=== PATIENT | female | born 2000 | race Caucasian/White ===

== ENCOUNTER 2019-10-16 15:55 | Emergency (ER) | payer MEDICAID, SELFPAY ==
[2019-10-16 16:12] VITALS: BP 130/72; PULSE 104; RESP 21; TEMP 36.6; O2SAT 99; BMI 19.8
--- NOTE | 2019-10-16 16:21 | HMH.EDUTC ---
[facility] [place]ression: Sinusitis Qualifiers: Sinusitis location: unspecified location Chronicity: acute Recurrence: non-recurrent Qualified Code(s): J01.90 - Acute sinusitis, unspecified Disposition: Home, Self-Care Condition on Discharge: Good Instructions: Sinusitis, DI for Sinusitis Additional Instructions: Drink plenty of fluids. Take tylenol or ibuprofen for pain or fever. Take the medications as directed. Follow up with your regular doctor. GO TO THE ER FOR ANY WORSENING SYMPTOMS Prescriptions: Azithromycin [Z-Casey 250mg Tab*] 250 mg PO UD DOSE PK #6 tab Transmission Status: Received by [id number] Referrals: Carla Barnes APRN [Primary Care Provider] - Time of Disposition: 16:31 Medical Decision Making - Medical Records Medical records reviewed: No: I reviewed the patient's medical records. - Jb Inquiry Pt receiving controlled substance: No Vital Signs: 10/16/19 16:12 10/16/19 16:50 Temperature 97.9 F 97.9 F Temperature Source Oral Pulse Rate 104 H Pulse Rate [Right Brachial] 104 H Respiratory Rate 21 21 Blood Pressure 130/72 Blood Pressure [Right Arm] 130/72 Blood Pressure Mean [Right Arm] 91 Blood Pressure Source [Right Arm] Automatic Cuff Blood Pressure Position [Right Arm] Sitting 02 Sat by Pulse Oximetry 99 Oxygen Delivery Method Room Air Orders (Tests/Meds): ED MEDICATIONS Discontinued Medications Generic Name Dose Route Start Last Admin Trade Name Freq PRN Reason Stop Dose Admin Dexamethasone Sodium Phosphate 8 mg 10/16/19 16:31 10/16/19 16:44 Decadron 4mg/Ml 1ml Vial IM 10/16/19 16:32 8 mg ONCE ONE Administration [facility] [place] - General Stated complaint: scratchy throat, runny nose, mucous drainage Time Seen by Provider: 10/16/19 16:21 Mode of Arrival: Ambulatory Source of Information: Patient Limitations: No Limitations Description of Symptoms (Recalled from Triage Doc. by RN): PATIENT C/O SCRATCHY/IRRITATED THROAT, SPITTING UP MUCOUS AND NASAL CONGESTION X 2 DAYS. DENIES FEVER, COUGH, AND ANY KNOWN SICK CONTACTS HEENT Symptoms (Recalled from RN notes): Yes Resp Symptoms (Recalled from RN notes): No Skin Symptoms (Recalled from RN notes): No MS Symptoms (Recalled from RN notes): No Functional Status (Recalled from RN notes): wnl - History of Present Illness Provider Complaint: She c/o sinus pressure, scratchy throat and head ache. She states that she has bad environmental allergies and that causes her to get sinus infections frequently. - Related Data Home Medications Medication Instructions Recorded Confirmed Loratadine/Pseudoephedrine 1 each PO DAILY 10/16/19 10/16/19 [Claritin-D 24 Hour Tablet] Previous Rx's Medication Instructions Recorded Azithromycin [Z-Casey 250mg Tab*] 250 mg PO UD DOSE PK #6 tab 10/16/19 Allergies Allergy/AdvReac Type Severity Reaction Status Date / Time No Known Allergies Allergy Verified 07/24/19 11:04 - Worker's Comp Is this a Worker's Comp case?: No [facility] History - Hepatitis A Screen Drug use history?: No High risk sexual behaviors?: No History of sexually transmitted infection?: No Currently employed?: No Childcare worker?: No Do you have indoor plumbing?: Yes Do you have electricity?: Yes Attestation statement:: This patient has been screened for Hepatitis A risk factors. I have reviewed the patient's past medical history: Yes Medical History: Reports:: Anxiety, Depression, Seizures Laterality Cases: Bilateral: Tonsillectomy Other Surgeries: Yes: , Other - Social History Smoking Status: Never smoker Alcohol Intake: never Substance Use Type: denies use Occupational Status: other Housing: house Household Members: family - Psychiatric History Pschychiatric History:: Reports:: Anxiety, Depression Family Hx:: Hypertension, Cancer, Diabetes Comment: Mother - Bulimia, Depression, Anxiety ROS Obtained: Yes All systems r
[2019-10-16 16:50] VITALS: BP 130/72; PULSE 104; RESP 21; TEMP 36.6; O2SAT 99
== END 2019-10-16 16:55 | disposition home or self-care (01) ==
PROVIDERS: Emergency Provider Nurse Practitioner Family; PCP Nurse Practitioner
DX: J01.90 Acute sinusitis, unspecified (principal); F41.8 Other specified anxiety disorders; Z90.09 Acquired absence of other part of head and neck
CPT/HCPCS: 96372; 99201

== ENCOUNTER 2020-02-04 08:59 | Emergency (ER) | payer MEDICAID, SELFPAY ==
[2020-02-04 09:00] VITALS: BP 149/87; PULSE 86; RESP 21; TEMP 36.7; O2SAT 99; BMI 20.5
[2020-02-04 09:26] LABS: UTC Strep Screen (Rapid) Negative (Negative)
[2020-02-04 09:28] LABS: UTC Influenza A Antigen Negative (Negative); UTC Influenza B Antigen Negative (Negative)
--- NOTE | 2020-02-04 09:59 | HMH.EDUTC ---
[facility] [place] Disposition Clinical Impression: Sinusitis Qualifiers: Sinusitis location: unspecified location Chronicity: acute Recurrence: non-recurrent Qualified Code(s): J01.90 - Acute sinusitis, unspecified Disposition: Home, Self-Care Condition on Discharge: Good Instructions: Sinusitis, DI for Sinusitis Additional Instructions: Drink plenty of fluids. Take tylenol or ibuprofen for pain or fever. Take the medications as directed. Follow up with your regular doctor. GO TO THE ER FOR ANY WORSENING SYMPTOMS Prescriptions: Brompheniramine/Pseudoephed/Dm [Bromfed Dm Cough Syrup] 5 ml PO Q6HP PRN #240 syrup PRN Reason: Cough Transmission Status: Received by [id number] methylPREDNISolone [Medrol] 4 mg PO DIRECTED 6 Days #21 tab.ds.pk [facility]: [facility] Azithromycin [Z-Casey 250mg Tab*] 250 mg PO UD DOSE PK #6 tab Transmission [facility]: [facility] Referrals: Carla Barnes APRN [Primary Care Provider] - Forms: Work/School Release Time of Disposition: 10:09 Medical Decision Making - Medical Records Medical records reviewed: No: I reviewed the patient's medical records. - Jb Inquiry Pt receiving controlled substance: No Vital Signs: 02/04/20 09:00 02/04/20 10:22 Temperature 98.1 F 98.1 F Temperature Source Oral Oral Pulse Rate 86 Pulse Rate [Right] 86 Respiratory Rate 21 21 Blood Pressure 149/87 H Blood Pressure [Right Arm] 149/87 H Blood Pressure Mean [Right Arm] 107 Blood Pressure Source Automatic Cuff Blood Pressure Position Sitting 02 Sat by Pulse Oximetry 99 Oxygen Delivery Method Room Air - Lab Data Lab results reviewed: Yes: I reviewed the patient's lab results. Lab Results 02/04/20 09:19: Influenza Type A Ag Negative, Influenza Type B Ag Negative 02/04/20 09:19: Strep Scn Rapid Clinic Negative Orders (Tests/Meds): ORDERS Category Date Time Status Strep Screen Confirmation Stat Micro 02/04/20 09:19 Received [facility] [place] HPI - General Stated complaint: mucus, sore throat, headache Time Seen by Provider: 02/04/20 09:00 Mode of Arrival: Ambulatory Limitations: No Limitations Description of Symptoms (Recalled from Triage Doc. by RN): C/O sore throat, sinus pressure and drainage, GUERRERO. Exposure to covid on the . HEENT Symptoms (Recalled from RN notes): Yes Resp Symptoms (Recalled from RN notes): Yes Skin Symptoms (Recalled from RN notes): No MS Symptoms (Recalled from RN notes): No Functional Status (Recalled from RN notes): na - History of Present Illness Provider Complaint: She c/o sinus pressure and headache for the past 2 days. She was exposed to COVID-19 on 01/29. - Related Data Home Medications Medication Instructions Recorded Confirmed Loratadine/Pseudoephedrine 1 each PO DAILY 10/16/19 10/16/19 [Claritin-D 24 Hour Tablet] Previous Rx's Medication Instructions Recorded Azithromycin [Z-Casey 250mg Tab*] 250 mg PO UD DOSE PK #6 tab 10/16/19 Azithromycin [Z-Casey 250mg Tab*] 250 mg PO UD DOSE PK #6 tab 02/04/20 Brompheniramine/Pseudoephed/Dm 5 ml PO Q6HP PRN #240 syrup 02/04/20 [Bromfed Dm Cough Syrup] methylPREDNISolone [Medrol] 4 mg PO DIRECTED 6 Days #21 02/04/20 tab.ds.pk Allergies Allergy/AdvReac Type Severity Reaction Status Date / Time No Known Allergies Allergy Verified 07/24/19 11:04 - Worker's Comp Is this a Worker's Comp case?: No [facility] History - Hepatitis A Screen Drug use history?: No High risk sexual behaviors?: No History of sexually transmitted infection?: No Currently employed?: No Childcare worker?: No Do you have indoor plumbing?: Yes Do you have electricity?: Yes Attestation statement:: This patient has been screened for Hepatitis A risk factors. I have reviewed the patient's past medical history: Yes Medical History: Reports:: Anxiety, Depression, Seizures Laterality Cases: Bilateral: Tonsillectomy Other Surgeries: Yes:
[2020-02-04 10:22] VITALS: BP 149/87; PULSE 86; RESP 21; TEMP 36.7; O2SAT 99
== END 2020-02-04 10:23 | disposition home or self-care (01) ==
PROVIDERS: Emergency Provider Nurse Practitioner Family; PCP Nurse Practitioner
DX: J01.90 Acute sinusitis, unspecified (principal); Z20.828 Contact with and (suspected) exposure to other viral communicable diseases; F41.8 Other specified anxiety disorders
CPT/HCPCS: 87804; 87880; 99202; U0003

== ENCOUNTER 2020-03-27 12:06 | Emergency (ER) | payer MEDICAID, SELFPAY ==
[2020-03-27 12:15] VITALS: BP 112/87; PULSE 85; RESP 20; TEMP 37.1; O2SAT 100; BMI 20.9
--- NOTE | 2020-03-27 12:26 | HMH.EDUTC ---
[facility] [place] Clinical Impression: Exposure to COVID-19 virus Disposition: Home, Self-Care Condition on Discharge: Good Instructions: Preventing the Spread of Coronavirus Discharge Instructions Additional Instructions: isolate until test results are known neg any symptoms follow up with pcp Referrals: Carla Barnes APRN [Primary Care Provider] - Time of Disposition: 12:31 Medical Decision Making - Jb Inquiry Pt receiving controlled substance: No Vital Signs: 03/27/20 12:15 Temperature 98.7 F Temperature Source Oral Pulse Rate [Right Brachial] 85 Respiratory Rate 20 Blood Pressure [Right Arm] 112/87 Blood Pressure Mean [Right Arm] 95 Blood Pressure Source [Right Arm] Automatic Cuff Blood Pressure Position [Right Arm] Sitting 02 Sat by Pulse Oximetry 100 Oxygen Delivery Method Room Air Orders (Tests/Meds): ORDERS Category Date Time Status Covid-19 Nasal PCR Sendout [facility] Stat Lab 03/27/20 12:08 Ordered [facility] [place] HPI - General Chief complaint: [facility] Stated complaint: covid exposure Time Seen by Provider: 03/27/20 12:26 Mode of Arrival: Ambulatory Source of Information: Patient Limitations: No Limitations Description of Symptoms (Recalled from Triage Doc. by RN): PATIENT REQUESTING COVID TEST D/T EXPOSURE; DENIES SYMPTOMS HEENT Symptoms (Recalled from RN notes): No Resp Symptoms (Recalled from RN notes): No Skin Symptoms (Recalled from RN notes): No MS Symptoms (Recalled from RN notes): No Functional Status (Recalled from RN notes): WNL - History of Present Illness Provider Complaint: 19 yr old female presents for covid testing.pt states no symptoms - Related Data Allergies Allergy/AdvReac Type Severity Reaction Status Date / Time No Known Allergies Allergy Verified 07/24/19 11:04 - Worker's Comp Is this a Worker's Comp case?: No [facility] History - Hepatitis A Screen Drug use history?: No High risk sexual behaviors?: No History of sexually transmitted infection?: No Currently employed?: No Childcare worker?: No Do you have indoor plumbing?: Yes Do you have electricity?: Yes Attestation statement:: This patient has been screened for Hepatitis A risk factors. I have reviewed the patient's past medical history: Yes Medical History: Reports:: Anxiety, Depression, Seizures Laterality Cases: Bilateral: Tonsillectomy Other Surgeries: Yes: , Other - Social History Smoking Status: Never smoker Alcohol Intake: never Substance Use Type: denies use Occupational Status: other Housing: house Household Members: family - Psychiatric History Pschychiatric History:: Reports:: Anxiety, Depression Family Hx:: Hypertension, Cancer, Diabetes Comment: Mother - Bulimia, Depression, Anxiety ROS Obtained: Yes Systems reviewed as appropriate & no additional complaints - Constitutional Constitutional: Reports system reviewed and no additional complaints, except as docu, Denies fever(s) - Eyes Eyes: Reports system reviewed and no additional complaints, except as docu, Denies eye pain - ENT Ears, Nose, Mouth, and Throat: Reports system reviewed and no additional complaints, except as docu, Denies sore throat - Cardiovascular Cardiovascular: Reports system reviewed and no additional complaints, except as docu, Denies chest pain - Respiratory Respiratory: Yes system reviewed and no additional complaints, except as docu, No dyspnea on exertion - Gastrointestinal Gastrointestingal: Reports: system reviewed and no additional complaints, except as docu. Denies: nausea, vomiting - Genitourinary Female Genitourinary: Reports system reviewed and no additional complaints, except as docu, Denies urinary hesitancy - Musculoskeletal Musculoskeletal: Reports system reviewed and no additional complaints, except as docu, Denies joint pain - Integumentary/Breasts Skin/Breast: Reports system reviewed and no additional complaints, except as docu, Denies rash - N
[2020-03-27 12:31] VITALS: BP 112/87; PULSE 85; RESP 20; TEMP 37.1; O2SAT 100
[2020-03-28 09:19] LABS: Covid-19 Nasal PCR Sendout UK Not Detected
== END 2020-03-27 12:35 | disposition home or self-care (01) ==
PROVIDERS: Emergency Provider Nurse Practitioner Family; PCP Nurse Practitioner
DX: Z20.828 Contact with and (suspected) exposure to other viral communicable diseases (principal); F41.8 Other specified anxiety disorders
CPT/HCPCS: 99201; U0003

== ENCOUNTER → 2020-03-29 12:22 | Outpatient (CLI) | payer MEDICAID, SELFPAY ==
[2020-03-30 13:19] LABS: Covid-19 Nasal PCR Sendout Lex Positive
== END ==
PROVIDERS: PCP Nurse Practitioner; Visit Provider Nurse Practitioner Family
DX: Z20.828 Contact with and (suspected) exposure to other viral communicable diseases (principal); U07.1 COVID-19
CPT/HCPCS: U0004

== ENCOUNTER 2020-04-22 11:21 | Emergency (ER) | payer MEDICAID, SELFPAY ==
[2020-04-22 12:53] VITALS: BP 00/00; PULSE 0; RESP 0; TEMP -17.7; TEMP 0
== END 2020-04-22 12:54 | disposition left against medical advice (07) ==
LOC: UTC 11:23
PROVIDERS: Emergency Provider Nurse Practitioner; PCP Nurse Practitioner
DX: Z53.21 Procedure and treatment not carried out due to patient leaving prior to being seen by health care provider (principal)

== ENCOUNTER 2020-06-20 11:16 | Emergency (ER) | payer MEDICAID, SELFPAY ==
[2020-06-20 11:39] VITALS: BP 118/75; PULSE 89; RESP 14; TEMP 36.2; O2SAT 99; BMI 20.5
--- NOTE | 2020-06-20 12:09 | HMH.EDUTC ---
[facility] [place] Disposition Clinical Impression: Viral syndrome, Close exposure to COVID-19 virus Disposition: Home, Self-Care Condition on Discharge: Good Instructions: DI for COVID-19 (Suspected or Confirmed ), Preventing the Spread of Coronavirus Discharge Instructions Additional Instructions: Drink plenty of fluids. Take tylenol for pain or fever. Return if you begin to have difficulty breathing. Follow up with your regular doctor. GO TO THE ER FOR ANY WORSENING SYMPTOMS Prescriptions: Azithromycin [Z-Casey 250mg Tab*] 250 mg PO UD DOSE PK #6 tab Transmission Status: Received by [id number] Referrals: Carla Barnes APRN [Primary Care Provider] - Time of Disposition: 12:32 Medical Decision Making - Medical Records Medical records reviewed: No: I reviewed the patient's medical records. - Jb Inquiry Pt receiving controlled substance: No Vital Signs: 06/20/20 11:39 06/20/20 13:14 Temperature 97.1 F L 98.6 F Temperature Source Tympanic Pulse Rate 93 H Pulse Rate [Right] 89 Respiratory Rate 14 18 Blood Pressure 115/77 Blood Pressure [Right Arm] 118/75 Blood Pressure Mean [Right Arm] 89 Blood Pressure Source [Right Arm] Automatic Cuff Blood Pressure Position [Right Arm] Sitting 02 Sat by Pulse Oximetry 99 Oxygen Delivery Method Room Air [facility] [place] HPI - General Stated complaint: covid test Time Seen by Provider: 06/20/20 12:09 Mode of Arrival: Ambulatory Source of Information: Patient Limitations: No Limitations Description of Symptoms (Recalled from Triage Doc. by RN): pt was directly exposed to covid. her fiance tested positive yesterday. pt is having a cough, ear ache, GUERRERO and congestion. HEENT Symptoms (Recalled from RN notes): Yes (GUERRERO and ear ache) Resp Symptoms (Recalled from RN notes): Yes (cough) Skin Symptoms (Recalled from RN notes): No MS Symptoms (Recalled from RN notes): No Functional Status (Recalled from RN notes): na - History of Present Illness Provider Complaint: She states that she has been exposed to covid-19 at her home. She has bene having sinus congestion, sore throat and a dry cough since yesterday. - Related Data Previous Rx's Medication Instructions Recorded Azithromycin [Z-Casey 250mg Tab*] 250 mg PO UD DOSE PK #6 tab 06/20/20 Allergies Allergy/AdvReac Type Severity Reaction Status Date / Time No Known Allergies Allergy Verified 06/20/20 11:44 - Worker's Comp Is this a Worker's Comp case?: No [facility] History - Hepatitis A Screen Drug use history?: No High risk sexual behaviors?: No History of sexually transmitted infection?: No Currently employed?: No Childcare worker?: No Do you have indoor plumbing?: Yes Do you have electricity?: Yes Attestation statement:: This patient has been screened for Hepatitis A risk factors. I have reviewed the patient's past medical history: Yes Medical History: Reports:: Anxiety, Depression, Seizures Laterality Cases: Bilateral: Tonsillectomy Other Surgeries: Yes: , Other - Social History Smoking Status: Unknown if ever smoked Alcohol Intake: never Substance Use Type: denies use Occupational Status: employed Housing: house Household Members: family - Psychiatric History Pschychiatric History:: Reports:: Anxiety, Depression Family Hx:: Hypertension, Cancer, Diabetes Comment: Mother - Bulimia, Depression, Anxiety ROS Obtained: Yes All systems reviewed & no additional complaints - Constitutional Constitutional: Reports system reviewed and no additional complaints, except as docu - Eyes Eyes: Reports system reviewed and no additional complaints, except as docu - ENT Ears, Nose, Mouth, and Throat: Reports system reviewed and no additional complaints, except as docu - Cardiovascular Cardiovascular: Reports system reviewed and no additional complaints, except as docu - Respiratory Respiratory: Reports system reviewed and no additional complaints, except as docu - Gastroin
[2020-06-20 13:14] VITALS: BP 115/77; PULSE 93; RESP 18; TEMP 37
== END 2020-06-20 12:33 | disposition home or self-care (01) ==
PROVIDERS: Emergency Provider Nurse Practitioner Family; PCP Nurse Practitioner
DX: B34.9 Viral infection, unspecified (principal); Z20.822 Contact with and (suspected) exposure to COVID-19
CPT/HCPCS: 99202; G0463; U0003

== ENCOUNTER 2020-08-28 11:14 | Emergency (ER) | payer MEDICAID, SELFPAY ==
[2020-08-28 11:15] VITALS: BP 120/88; PULSE 87; RESP 16; TEMP 36.6; O2SAT 99; BMI 20.9
--- NOTE | 2020-08-28 11:57 | HMH.EDUTC ---
[facility] [place]: Exposure to COVID-19 virus, Viral syndrome Disposition: Home, Self-Care Condition on Discharge: Good Instructions: Preventing the Spread of Coronavirus Discharge Instructions Additional Instructions: Drink plenty of fluids. Take tylenol for pain or fever. Return if you begin to have difficulty breathing. Follow up with your regular doctor. GO TO THE ER FOR ANY WORSENING SYMPTOMS Referrals: Carla Barnes APRN [Primary Care Provider] - Forms: Work/School Release Time of Disposition: 11:57 Medical Decision Making - Medical Records Medical records reviewed: No: I reviewed the patient's medical records. - Jb Inquiry Pt receiving controlled substance: No Vital Signs: 08/28/20 11:15 08/28/20 11:59 Temperature 97.8 F 97.8 F Temperature Source Tympanic Oral Pulse Rate 87 Pulse Rate [Right] 87 Respiratory Rate 16 16 Blood Pressure 120/88 Blood Pressure [Right Arm] 120/88 Blood Pressure Mean [Right Arm] 98 02 Sat by Pulse Oximetry 99 Oxygen Delivery Method Room Air Orders (Tests/Meds): ORDERS Category Date Time Status Covid-19 Nasal PCR ([facility]) Routine Lab 08/28/20 11:20 [place] [facility] [place] - General Stated complaint: Covid Test Time Seen by Provider: 08/28/20 11:15 Mode of Arrival: Ambulatory Limitations: No Limitations Description of Symptoms (Recalled from Triage Doc. by RN): pt requested Covid test. pt c/o handy, stuffy nose HEENT Symptoms (Recalled from RN notes): No Resp Symptoms (Recalled from RN notes): Yes Skin Symptoms (Recalled from RN notes): No MS Symptoms (Recalled from RN notes): No Functional Status (Recalled from RN notes): wnl - History of Present Illness Provider Complaint: She states that she was exposed to covid-19 3 days ago. She has been having chest congestion, low grade fever, chilling and body aches since yesterday. - Related Data Previous Rx's Medication Instructions Recorded Azithromycin [Z-Casey 250mg Tab*] 250 mg PO UD DOSE PK #6 tab 06/20/20 Allergies Allergy/AdvReac Type Severity Reaction Status Date / Time No Known Allergies Allergy Verified 06/20/20 11:44 - Worker's Comp Is this a Worker's Comp case?: No [facility] History - Hepatitis A Screen Drug use history?: No High risk sexual behaviors?: No History of sexually transmitted infection?: No Currently employed?: No Childcare worker?: No Do you have indoor plumbing?: Yes Do you have electricity?: Yes Attestation statement:: This patient has been screened for Hepatitis A risk factors. I have reviewed the patient's past medical history: Yes Medical History: Reports:: Anxiety, Depression, Seizures Laterality Cases: Bilateral: Tonsillectomy Other Surgeries: Yes: , Other - Social History Smoking Status: Never smoker Alcohol Intake: never Substance Use Type: denies use Occupational Status: employed Housing: house Household Members: family - Psychiatric History Pschychiatric History:: Reports:: Anxiety, Depression Family Hx:: Hypertension, Cancer, Diabetes Comment: Mother - Bulimia, Depression, Anxiety ROS Obtained: Yes All systems reviewed & no additional complaints - Constitutional Constitutional: Reports as per HPI - Eyes Eyes: Reports system reviewed and no additional complaints, except as docu - ENT Ears, Nose, Mouth, and Throat: Reports system reviewed and no additional complaints, except as docu - Cardiovascular Cardiovascular: Reports system reviewed and no additional complaints, except as docu - Respiratory Respiratory: Reports system reviewed and no additional complaints, except as docu, Denies dyspnea, Denies stridor, Denies wheezing - Gastrointestinal Gastrointestingal: Reports: nausea. Denies: abdominal pain, diarrhea, vomiting Physical Exam - General General appearance: alert, in no apparent distress - Head Head exam: atraumatic, normocephalic, normal inspection - Eye Eye exam:
[2020-08-28 11:59] VITALS: BP 120/88; PULSE 87; RESP 16; TEMP 36.6; O2SAT 99
== END 2020-08-28 12:01 | disposition home or self-care (01) ==
PROVIDERS: Emergency Provider Nurse Practitioner Family; PCP Nurse Practitioner
DX: Z20.822 Contact with and (suspected) exposure to COVID-19 (principal); B34.9 Viral infection, unspecified; F41.8 Other specified anxiety disorders
CPT/HCPCS: 99202; G0463; U0003

== ENCOUNTER → 2021-02-10 19:52 | Outpatient (CLI) | payer MEDICAID, SELFPAY ==
[2021-02-10 19:53] LABS: Adenovirus,PCR Not Detected (NotDetected); Bordetella Pertussis Not Detected (NotDetected); Chlamydophila Pneumoniae, PCR Not Detected (NotDetected); Coronavirus 19, PCR Not Detected (NotDetected); Coronavirus 229E Not Detected (NotDetected); Coronavirus NL63 Not Detected (NotDetected); Coronavirus OC43 Not Detected (NotDetected); Coronovirus HKU1,PCR Not Detected (NotDetected); Human Metapneumovirus Not Detected (NotDetected); Influenza A, PCR Not Detected (NotDetected); Influenza AH1, 2009 Not Detected (NotDetected); Influenza AH1, PCR Not Detected (NotDetected); Influenza AH3,PCR Not Detected (NotDetected); Influenza B, PCR Not Detected (NotDetected); Mycoplasma Pneumoniae, PCR Not Detected (NotDetected); Parainfluenza 1, PCR Not Detected (NotDetected); Parainfluenza 2, PCR Not Detected (NotDetected); Parainfluenza 3, PCR Not Detected (NotDetected); Parainfluenza 4, PCR Not Detected (NotDetected); Respiratory Syncytial Virus Not Detected (NotDetected); Rhinovirus/Enterovirus Not Detected (NotDetected)
== END ==
PROVIDERS: Visit Provider Nurse Practitioner Family
DX: Z20.822 Contact with and (suspected) exposure to COVID-19 (principal); R50.9 Fever, unspecified; J02.9 Acute pharyngitis, unspecified
CPT/HCPCS: 87581; 87632; 87798; C9803; U0003; U0005

== ENCOUNTER → 2021-06-03 09:12 | Outpatient (CLI) | payer MEDICAID, SELFPAY ==
[2021-06-04 15:20] LABS: Covid-19 Nasal PCR Sendout Lex POSITIVE
== END ==
PROVIDERS: Visit Provider Nurse Practitioner
DX: U07.1 COVID-19 (principal)
CPT/HCPCS: C9803; U0004; U0005

== ENCOUNTER 2021-09-06 12:51 | Emergency (ER) | payer MEDICAID, SELFPAY ==
--- NOTE | 2021-09-06 13:48 | HMH.EDUTC ---
[facility] [place]ression: Sinusitis Qualifiers: Sinusitis location: unspecified location Chronicity: acute Recurrence: non-recurrent Qualified Code(s): J01.90 - Acute sinusitis, unspecified Disposition: Home, Self-Care Condition on Discharge: Good Instructions: Sinusitis, DI for Sinusitis Additional Instructions: Drink plenty of fluids. Take tylenol or ibuprofen for pain or fever. Take the medications as directed. Follow up with your regular doctor. GO TO THE ER FOR ANY WORSENING SYMPTOMS Prescriptions: Fluticasone Propionate [Flonase 50mcg nasal spray 16gm] 1 spr NS DAILY 30 Days #120 each [facility]: [facility] methylPREDNISolone [Medrol] 4 mg PO DIRECTED 6 Days #21 packet Transmission [facility]: [facility] Azithromycin [Z-Casey 250mg Tab*] 250 mg PO UD DOSE PK #6 tab Transmission Status: Received by [facility] Cetirizine HCl [Zyrtec] 10 mg PO DAILY 30 Days #30 cap Transmission [facility]: [facility] Referrals: Carla Barnes APRN [Primary Care Provider] - Forms: Work/School Release Time of Disposition: 14:31 Medical Decision Making - Medical Records Medical records reviewed: No: I reviewed the patient's medical records. - Jb Inquiry Pt receiving controlled substance: No Vital Signs: 09/06/21 14:05 09/06/21 14:37 Temperature 98.6 F 98.6 F Temperature Source Oral Pulse Rate 84 Pulse Rate [Left] 84 Respiratory Rate 18 18 Blood Pressure 128/81 Blood Pressure [Right Arm] 128/71 Blood Pressure Mean [Right Arm] 90 02 Sat by Pulse Oximetry 100 - Lab Data Lab results reviewed: Yes: I reviewed the patient's lab results. [facility] [place] - General Stated complaint: possible sinus inf Time Seen by Provider: 09/06/21 13:48 - History of Present Illness Provider Complaint: She states that for the past 5 days she has had a worsening sinus congestion, drainage and a cough. - Related Data Previous Rx's Medication Instructions Recorded albuterol sulfate 90 mcg/actuation 2 puff INHALATION Q6H PRN 30 Days 02/10/21 aerosol inhaler #6.7 g Azithromycin [Z-Casey 250mg Tab*] 250 mg PO UD DOSE PK #6 tab 05/03/22 Cetirizine HCl [Zyrtec] 10 mg PO DAILY 30 Days #30 cap 09/06/21 Fluticasone Propionate [Flonase 1 spr NS DAILY 30 Days #120 each 09/06/21 50mcg nasal spray 16gm] methylPREDNISolone [Medrol] 4 mg PO DIRECTED 6 Days #21 09/06/21 packet Allergies Allergy/AdvReac Type Severity Reaction Status Date / Time No Known Allergies Allergy Verified 09/06/21 14:08 [facility] History - Hepatitis A Screen Attestation statement:: This patient has been screened for Hepatitis A risk factors. I have reviewed the patient's past medical history: Yes Medical History: Reports:: Anxiety, Depression, Seizures Laterality Cases: Bilateral: Tonsillectomy Other Surgeries: Yes: , Other Comment: adenoids - Social History Smoking Status: Never smoker Alcohol Intake: never Substance Use Type: denies use Occupational Status: employed Housing: house Household Members: family - Psychiatric History Pschychiatric History:: Reports:: Anxiety, Depression Family Hx:: Hypertension, Cancer, Diabetes Comment: Mother - Bulimia, Depression, Anxiety ROS Obtained: Yes All systems reviewed & no additional complaints - Constitutional Constitutional: Reports as per HPI - Eyes Eyes: Denies eye discharge - ENT Ears, Nose, Mouth, and Throat: Reports as per HPI - Cardiovascular Cardiovascular: Denies chest pain - Respiratory Respiratory: Denies chest congestion, Reports cough Physical Exam - General General appearance: alert, in no apparent distress - Head Head exam: atraumatic, normocephalic, normal inspection - Eye Eye exam: Present: normal appearance, PERRL, EOMI - ENT ENT exam: Present: normal exam, normal oropharynx, mucous membranes moist, TM's normal bilaterally,
[2021-09-06 14:05] VITALS: BP 128/71; PULSE 84; RESP 18; TEMP 37; O2SAT 100; BMI 21.4
[2021-09-06 14:37] VITALS: BP 128/81; PULSE 84; RESP 18; TEMP 37
== END 2021-09-06 14:38 | disposition home or self-care (01) ==
PROVIDERS: Emergency Provider Nurse Practitioner Family; PCP Nurse Practitioner
DX: J01.90 Acute sinusitis, unspecified (principal); G40.909 Epilepsy, unspecified, not intractable, without status epilepticus; F32.A Depression, unspecified; F41.9 Anxiety disorder, unspecified; Z79.51 Long term (current) use of inhaled steroids; Z79.52 Long term (current) use of systemic steroids; Z79.899 Other long term (current) drug therapy; Z82.49 Family history of ischemic heart disease and other diseases of the circulatory system; Z80.9 Family history of malignant neoplasm, unspecified; Z83.3 Family history of diabetes mellitus; Z84.89 Family history of other specified conditions
CPT/HCPCS: 99213; G0463

== ENCOUNTER 2021-10-22 14:12 | Emergency (ER) | payer MEDICAID, SELFPAY ==
[2021-10-22 14:29] VITALS: BP 123/55; PULSE 87; RESP 17; TEMP 37; O2SAT 98; BMI 22.1
--- NOTE | 2021-10-22 14:41 | HMH.EDUTC ---
[facility] [place] Clinical Impression: Contact dermatitis Qualifiers: Contact dermatitis type: allergic Contact dermatitis trigger: unspecified trigger Qualified Code(s): L23.9 - Allergic contact dermatitis, unspecified cause Disposition: Home, Self-Care Condition on Discharge: Good Instructions: DI for Contact Dermatitis Additional Instructions: Try to identify and avoid contact with the offending substance. Don't start the oral steroids until tomorrow. Don't put the topical steroids (triamcinolone) on your face or your groin area. Follow up with your regular doctor, if this continues you may need to be referred to a truck railroad and bus motor mechanic. GO TO THE ER FOR ANY WORSENING SYMPTOMS OR CONCERNS Prescriptions: methylPREDNISolone [Medrol] 4 mg PO DIRECTED 6 Days #21 packet Transmission Status: Received by [id number] Triamcinolone Acetonide 1 applicatio TP TIDP PRN 7 Days #1 gm PRN Reason: Itching Transmission Status: Received by [id number] Referrals: Carla Barnes APRN [Primary Care Provider] - Time of Disposition: 14:50 Medical Decision Making - Medical Records Medical records reviewed: No: I reviewed the patient's medical records. - Jb Inquiry Pt receiving controlled substance: No Vital Signs: 10/22/21 14:29 10/22/21 14:51 Temperature 98.6 F 98.6 F Temperature Source Oral Pulse Rate 87 Pulse Rate [Left Radial] 87 Respiratory Rate 17 17 Blood Pressure 123/55 L Blood Pressure [Right Arm] 123/55 L Blood Pressure Mean [Right Arm] 77 02 Sat by Pulse Oximetry 98 Orders (Tests/Meds): ED MEDICATIONS Discontinued Medications Generic Name Dose Route Start Last Admin Trade Name Freq PRN Reason Stop Dose Admin Methylprednisolone Sodium Succinate 125 mg 10/22/21 14:27 10/22/21 14:35 Methylprednisolone Sod Succ 125mg Vial IM 10/22/21 14:28 125 mg ONCE ONE Administration [facility] [place] - General Stated complaint: rash on back Time Seen by Provider: 10/22/21 14:35 Description of Symptoms (Recalled from Triage Doc. by RN): patient comes in for rash on back HEENT Symptoms (Recalled from RN notes): No Resp Symptoms (Recalled from RN notes): No Skin Symptoms (Recalled from RN notes): Yes MS Symptoms (Recalled from RN notes): No Functional Status (Recalled from RN notes): wnl - History of Present Illness Provider Complaint: She reports that she has a itchy rash on her back that has been there for the past 2 to 3 weeks. She denies any know exposure to poison vinayak or other irritants. She denies any rash elsewhere on her. She denies any fever or chills or feeling bad or other complaints. - Related Data Previous Rx's Medication Instructions Recorded albuterol sulfate 90 mcg/actuation 2 puff INHALATION Q6H PRN 30 Days 02/10/21 aerosol inhaler #6.7 g Azithromycin [Z-Casey 250mg Tab*] 250 mg PO UD DOSE PK #6 tab 09/06/21 Cetirizine HCl [Zyrtec] 10 mg PO DAILY 30 Days #30 cap 09/06/21 Fluticasone Propionate [Flonase 1 spr NS DAILY 30 Days #120 each 09/06/21 50mcg nasal spray 16gm] methylPREDNISolone [Medrol] 4 mg PO DIRECTED 6 Days #21 09/06/21 packet Triamcinolone Acetonide 1 applicatio TP TIDP PRN 7 Days #1 10/22/21 gm methylPREDNISolone [Medrol] 4 mg PO DIRECTED 6 Days #21 10/22/21 packet Allergies Allergy/AdvReac Type Severity Reaction Status Date / Time No Known Allergies Allergy Verified 10/22/21 14:32 - Worker's Comp Is this a Worker's Comp case?: No [facility] History - Hepatitis A Screen Attestation statement:: This patient has been screened for Hepatitis A risk factors. I have reviewed the patient's past medical history: Yes Medical History: Reports:: Anxiety, Depression, Seizures Laterality Cases: Bilateral: Tonsillectomy Other Surgeries: Yes: , Other Comment: adenoids - Social History Smoking Status: Never smoker Alcohol Intake: never Substance Use Type: denies use Occupational Status: employed [employer]
[2021-10-22 14:51] VITALS: BP 123/55; PULSE 87; RESP 17; TEMP 37
== END 2021-10-22 14:52 | disposition home or self-care (01) ==
PROVIDERS: Emergency Provider Nurse Practitioner Family; PCP Nurse Practitioner
DX: L23.9 Allergic contact dermatitis, unspecified cause (principal); G40.909 Epilepsy, unspecified, not intractable, without status epilepticus; F32.A Depression, unspecified; F41.9 Anxiety disorder, unspecified; Z79.51 Long term (current) use of inhaled steroids; Z79.52 Long term (current) use of systemic steroids; Z79.899 Other long term (current) drug therapy; Z82.49 Family history of ischemic heart disease and other diseases of the circulatory system; Z83.3 Family history of diabetes mellitus; Z80.9 Family history of malignant neoplasm, unspecified; Z81.8 Family history of other mental and behavioral disorders; Z86.59 Personal history of other mental and behavioral disorders
CPT/HCPCS: 96372; 99213; G0463

== ENCOUNTER 2021-12-30 15:57 | Emergency (ER) | payer MEDICAID, SELFPAY ==
--- NOTE | 2021-12-30 17:52 | EXP.UTC ---
Discharge Plan Disposition Patient Disposition: Home, Self-Care Condition: Good Prescriptions Prescriptions: No Action albuterol sulfate 90 mcg/actuation HFA aerosol inhaler 2 puff INHALATION Q6H PRN (Reason: wheezing and SOB) 30 Days Qty: 6.7 0RF Rx Instructions: administer with spacer azithromycin 250 MG tablet 250 mg PO UD DOSE PK Qty: 6 0RF Rx Instructions: Take two (2) tablets today, then one (1) tablet days #2 thru #5 methylprednisolone 4 MG tablets,dose pack 4 mg PO DIRECTED 6 Days Qty: 21 0RF fluticasone propionate 120 SPR/BOT bottle 1 spr NS DAILY 30 Days Qty: 120 0RF cetirizine 10 MG capsule 10 mg PO DAILY 30 Days Qty: 30 5RF triamcinolone acetonide 15 GM cream 1 applicatio TP TIDP PRN (Reason: Itching) 7 Days Qty: 1 0RF Rx Instructions: 0.025% methylprednisolone 4 MG tablets,dose pack 4 mg PO DIRECTED 6 Days Qty: 21 0RF Referrals Referrals: Carla Barnes APRN [Primary Care Provider] - Enter time for follow up Activity Restrictions/Add. Instructions Additional Instructions/Restrictions: Drink plenty of fluids. Take tylenol for pain or fever. Return if you begin to have difficulty breathing. Follow up with your regular doctor. GO TO THE ER FOR ANY WORSENING SYMPTOMS Quarantine until you know the results of your covid-19 test. Notify your school or workplace of your results and follow their instructions regarding return to work/school. Clinical Impressions Clinical Impression: Viral syndrome Instructions Patient Instructions: DI for Viral Syndrome, Coronavirus Disease 2019, Preventing the Spread of Coronavirus Discharge Instructions Discharge ED Provider: Ross Cavanaugh [facility] [place] HPI General Stated complaint: EXPOSED,SORE THROAT,handy rUNNY NOSE Time Seen by Provider: 12/30/21 17:52 History of Present Illness Provider Complaint: SHe states that for the past 2 days she has had sinus congestion, sore throat and body aches. Related Data Previous Rx's Medication Instructions Recorded albuterol sulfate 90 mcg/actuation 2 puff inhalation Q6H PRN wheezing 02/10/21 aerosol inhaler and SOB 30 days #6.7 grams azithromycin 250 mg tablet 250 mg PO UD DOSE PK #6 tabs 05/03/22 cetirizine 10 mg capsule 10 mg PO DAILY 30 days #30 caps 09/06/21 fluticasone propionate 50 1 spr NS DAILY 30 days #120 ea 09/06/21 mcg/actuation nasal spray,suspension methylprednisolone 4 mg tablets in 4 mg PO DIRECTED 6 days #21 09/06/21 a dose pack packets methylprednisolone 4 mg tablets in 4 mg PO DIRECTED 6 days #21 10/22/21 a dose pack packets triamcinolone acetonide 0.025 % 1 applicatio topical TIDP PRN 10/22/21 topical cream Itching 7 days ##1 Allergies Allergy/AdvReac Type Severity Reaction Status Date / Time No Known Allergies Allergy Verified 12/30/21 18:00 [facility] Social History Smoking Status: Never smoker alcohol intake: never substance use type: denies use current occupational status: employed household members: family housing: house ROS Obtained: Yes All systems reviewed & no additional complaints except as documented Constitutional Constitutional: Reports chills and Reports fever(s) Eyes Eyes: Denies eye discharge ENT Ears, Nose, Mouth, and Throat: Reports as per HPI Cardiovascular Cardiovascular: Denies chest pain Respiratory Respiratory: Denies chest congestion and Reports cough Gastrointestinal Gastrointestingal: Reports nausea; Denies abdominal pain, constipation, cramping, diarrhea or vomiting Musculoskeletal Musculoskeletal: Denies arthralgias Integumentary/Breasts Skin/Breast: Denies rash Neurologic Neurologic: Denies paresthesias Physical Exam General General appearance: alert and in no apparent distress Head Head exam: atraumatic and normocephalic Eye Eye exam: Present normal appearance, PERRL and EOMI ENT ENT exam: Prese
[2021-12-30 17:57] VITALS: BP 122/76; PULSE 74; RESP 16; TEMP 36.8; O2SAT 99; BMI 20.6
[2021-12-30 17:59] LABS: UTC Strep Screen (Rapid) Negative (Negative)
[2021-12-30 18:33] VITALS: BP 122/76; PULSE 74; RESP 16; TEMP 36.8
== END 2021-12-30 18:34 | disposition home or self-care (01) ==
PROVIDERS: Emergency Provider Nurse Practitioner Family; PCP Nurse Practitioner
DX: B34.9 Viral infection, unspecified (principal); J02.9 Acute pharyngitis, unspecified; M79.10 Myalgia, unspecified site; Z20.822 Contact with and (suspected) exposure to COVID-19; Z79.51 Long term (current) use of inhaled steroids; Z79.52 Long term (current) use of systemic steroids
CPT/HCPCS: 87880; 99213; C9803; G0463; U0003; U0005

== ENCOUNTER 2022-03-07 08:01 | Emergency (ER) | payer MEDICAID, SELFPAY ==
--- NOTE | 2022-03-07 08:17 | EXP.UTC ---
Discharge Plan Disposition Patient Disposition: Home, Self-Care Condition: Good Prescriptions Prescriptions: New phenazopyridine [Pyridium] 200 mg tablet 200 mg PO Q8H 2 Days Qty: 6 0RF cephalexin 500 mg capsule 500 mg PO QID 7 Days Qty: 28 0RF No Action albuterol sulfate 90 mcg/actuation HFA aerosol inhaler 2 puff INHALATION Q6H PRN (Reason: wheezing and SOB) 30 Days Qty: 6.7 0RF Rx Instructions: administer with spacer azithromycin 250 MG tablet 250 mg PO UD DOSE PK Qty: 6 0RF Rx Instructions: Take two (2) tablets today, then one (1) tablet days #2 thru #5 methylprednisolone 4 MG tablets,dose pack 4 mg PO DIRECTED 6 Days Qty: 21 0RF fluticasone propionate 120 SPR/BOT bottle 1 spr NS DAILY 30 Days Qty: 120 0RF cetirizine 10 MG capsule 10 mg PO DAILY 30 Days Qty: 30 5RF triamcinolone acetonide 15 GM cream 1 applicatio TP TIDP PRN (Reason: Itching) 7 Days Qty: 1 0RF Rx Instructions: 0.025% methylprednisolone 4 MG tablets,dose pack 4 mg PO DIRECTED 6 Days Qty: 21 0RF Referrals Follow up/Referrals: Carla Barnes APRN [Primary Care Provider] - See instructions Activity Restrictions/Add. Instructions Additional Instructions/Restrictions: Drink plenty of fluids. Take tylenol or ibuprofen for pain or fever. Take the medications as directed. Follow up with your regular doctor. GO TO THE ER FOR ANY WORSENING SYMPTOMS The pyridium will make your urine turn orange, this is an expected side effect. It will stain your clothes if it comes into contact with them. We will culture the urine. That will tell what bacteria is causing your infection and which antibiotics will treat it best. Sometimes the first antibiotic we prescribe turns out to not work against different bacteria. So, make sure you follow up within 3 days if you are not getting better. Clinical Impressions Clinical Impression: UTI (urinary tract infection) Stand Alone Forms Stand Alone Forms: Work/School Release Instructions Patient Instructions: Urine Culture, DI for Urinary Tract Infection (UTI), Phenazopyridine Discharge ED Provider: Ross Cavanaugh [facility] [place] General Stated complaint: possible UTI Time Seen by Provider: 03/07/22 08:25 History of Present Illness Provider Complaint: She states that she has had low back pain, dysuria and urinary frequency for the past 3 days. Related Data Previous Rx's Medication Instructions Recorded albuterol sulfate 90 mcg/actuation 2 puff inhalation Q6H PRN wheezing 02/10/21 aerosol inhaler and SOB 30 days #6.7 grams azithromycin 250 mg tablet 250 mg PO UD DOSE PK #6 tabs 09/06/21 cetirizine 10 mg capsule 10 mg PO DAILY 30 days #30 caps 09/06/21 fluticasone propionate 50 1 spr NS DAILY 30 days #120 ea 09/06/21 mcg/actuation nasal spray,suspension methylprednisolone 4 mg tablets in 4 mg PO DIRECTED 6 days #21 09/06/21 a dose pack packets methylprednisolone 4 mg tablets in 4 mg PO DIRECTED 6 days #21 10/22/21 a dose pack packets triamcinolone acetonide 0.025 % 1 applicatio topical TIDP PRN 10/22/21 topical cream Itching 7 days ##1 cephalexin 500 mg capsule 500 mg PO QID 7 days #28 caps 03/07/22 phenazopyridine 200 mg tablet 200 mg PO Q8H 2 days #6 tabs 03/07/22 (Pyridium) Allergies Allergy/AdvReac Type Severity Reaction Status Date / Time No Known Allergies Allergy Verified 12/30/21 18:00 [facility] Social History Smoking Status: Never smoker alcohol intake: never substance use type: denies use current occupational status: employed Travel in the last 8 weeks: None household members: family housing: house ROS Obtained: Yes All systems reviewed & no additional complaints except as documented Constitutional Constitutional: Reports system reviewed and no additional complaints, except as documented, Denies chills and Denies fev
[2022-03-07 09:08] VITALS: BP 132/86; PULSE 92; RESP 18; TEMP 36.6; O2SAT 100; BMI 21.7
[2022-03-07 09:11] VITALS: BP 132/86; PULSE 92; RESP 18; TEMP 36.6
[2022-03-07 11:08] LABS: Apearance,Urine Cloudy (Clear); Bilirubin,Urine Negative (Negative); Blood, Urine 1+ (Negative); Color,Urine Yellow (Yellow); Glucose,Urine (UA) Negative (Negative); Ketones,Urine Negative (Negative); Protein,Urine 1+ (Negative); Specific Gravity, Urine 1.025 (1.005-1.030); UTC Leukocyte Esterase,Urine Negative (Negative); UTC Nitrate,Urine Positive (Negative); Urobilinogen,Urine 0.2 EU/dl (0.2)
== END 2022-03-07 09:11 | disposition home or self-care (01) ==
PROVIDERS: Emergency Provider Nurse Practitioner Family; PCP Nurse Practitioner
DX: N39.0 Urinary tract infection, site not specified (principal)
CPT/HCPCS: 81003; 87086; 87088; 87186; 99212; G0463

== ENCOUNTER 2022-04-05 09:48 | Emergency (ER) | payer MEDICAID, SELFPAY ==
[2022-04-05 11:05] VITALS: BP 131/76; PULSE 72; RESP 18; TEMP 36.7; O2SAT 99; BMI 23.3
--- NOTE | 2022-04-05 11:24 | EXP.UTC ---
Discharge Plan Disposition Patient Disposition: Home, Self-Care Condition: Good Prescriptions Prescriptions: New azithromycin [Zithromax Z-Casey] 250 mg tablet See Rx Instructions .ROUTE .COMPLEX 5 Days Qty: 6 0RF Rx Instructions: For 250 mg dose pack: take 500 mg today (day 1), then 250 mg for 4 days (days 2-5) benzonatate 100 mg capsule 100 mg PO TID PRN (Reason: cough) Qty: 30 0RF methylprednisolone [Medrol (Casey)] 4 mg tablets,dose pack See Rx Instructions .Route .COMPLEX 6 Days Qty: 21 0RF Rx Instructions: taper pack; No Action albuterol sulfate 90 mcg/actuation HFA aerosol inhaler 2 puff INHALATION Q6H PRN (Reason: wheezing and SOB) 30 Days Qty: 6.7 0RF Rx Instructions: administer with spacer phenazopyridine [Pyridium] 200 mg tablet 200 mg PO Q8H 2 Days Qty: 6 0RF cephalexin 500 mg capsule 500 mg PO QID 7 Days Qty: 28 0RF azithromycin 250 MG tablet 250 mg PO UD DOSE PK Qty: 6 0RF Rx Instructions: Take two (2) tablets today, then one (1) tablet days #2 thru #5 methylprednisolone 4 MG tablets,dose pack 4 mg PO DIRECTED 6 Days Qty: 21 0RF fluticasone propionate 120 SPR/BOT bottle 1 spr NS DAILY 30 Days Qty: 120 0RF cetirizine 10 MG capsule 10 mg PO DAILY 30 Days Qty: 30 5RF triamcinolone acetonide 15 GM cream 1 applicatio TP TIDP PRN (Reason: Itching) 7 Days Qty: 1 0RF Rx Instructions: 0.025% methylprednisolone 4 MG tablets,dose pack 4 mg PO DIRECTED 6 Days Qty: 21 0RF Referrals Follow up/Referrals: Carla Barnes APRN [Primary Care Provider] - See instructions Activity Restrictions/Add. Instructions Additional Instructions/Restrictions: *Monitor Temp, Over the counter Motrin or Tylenol as directed/as needed Tylenol every 4 hours and Motrin every 6 hours (as long as your family doctor has told you that you can take it) for fever or pain. and straight to ER if unable to lower temp less than 101.0 after medication given *Warm salt water gargles may help to soothe the throat *Throat Lozenges? *Warm fluids like tea with honey may help to soothe the throat? *Sleep elevated *Humidifier/Vaporizer Your throat swab was sent for culture. Those results are typically sent to your primary care. Be sure to follow up in 2-3 days with your family doctor/primary care physician if no improvement so they can review those result and treat if necessary. If you don?t have a primary care doctor, I recommend you get one but in the mean time, you will have to return to a walk in clinic Follow up IMMEDIATELY for new or worsening symptoms or no Noticeable improvement over the next 48-72 hours. 911 for difficulty breathing or swallowing Clinical Impressions Clinical Impression: Pharyngitis Instructions Patient Instructions: Sore Throat, Cough Discharge ED Provider: Joanna Mercado [facility] [place] General Stated complaint: Cough, exposure to pharyngitis Mode of Arrival: Ambulatory Source of Information: Patient Limitations: No Limitations Time Seen by Provider: 04/05/22 11:24 Description of Symptoms (Recalled from Triage Doc. by RN): PATIENT C/O DRY COUGH AND CAN'T CLEAR THROAT SINCE SUNDAY. RECENTLY EXPOSED TO PHARYNGITIS HEENT Symptoms (Recalled from RN notes): No Resp Symptoms (Recalled from RN notes): Yes Skin Symptoms (Recalled from RN notes): No MS Symptoms (Recalled from RN notes): No Functional Status (Recalled from RN notes): WNL History of Present Illness Provider Complaint: Patient states that her son was recently dx with pharyngitis, States that she has been having sore throat, dry cough and hurts when she swallows and today she feels like she is loosing her voice so she came in Related Data Previous Rx's Medication Instructions Recorded albuterol sulfate 90 mcg/actuation 2 puff inhalation Q6H PRN wheezing 02/10/21 aerosol inhaler and SOB 30 days #6.7 grams azithromycin 250 mg tablet 250 mg P
[2022-04-05 11:37] VITALS: BP 131/76; PULSE 72; RESP 18; TEMP 36.7; O2SAT 99
== END 2022-04-05 11:41 | disposition home or self-care (01) ==
PROVIDERS: Emergency Provider Nurse Practitioner; PCP Nurse Practitioner
DX: J02.9 Acute pharyngitis, unspecified (principal); R05.9 Cough, unspecified
CPT/HCPCS: 99212; G0463

== ENCOUNTER 2022-04-25 08:01 | Emergency (ER) | payer MEDICAID, SELFPAY ==
[2022-04-25 08:10] VITALS: BP 137/80; PULSE 76; RESP 18; TEMP 36.8; O2SAT 98; BMI 22.7
--- NOTE | 2022-04-25 08:21 | EXP.UTC ---
Discharge Plan Disposition Patient Disposition: Home, Self-Care Condition: Good Prescriptions Prescriptions: New methylprednisolone [Medrol (Casey)] 4 mg tablets,dose pack See Rx Instructions .Route .COMPLEX 6 Days Qty: 21 0RF Rx Instructions: taper pack; amoxicillin-pot clavulanate 875-125 mg Tablet 1 tab PO Q12H Qty: 20 0RF No Action albuterol sulfate 90 mcg/actuation HFA aerosol inhaler 2 puff INHALATION Q6H PRN (Reason: wheezing and SOB) 30 Days Qty: 6.7 0RF Rx Instructions: administer with spacer phenazopyridine [Pyridium] 200 mg tablet 200 mg PO Q8H 2 Days Qty: 6 0RF cephalexin 500 mg capsule 500 mg PO QID 7 Days Qty: 28 0RF azithromycin 250 MG tablet 250 mg PO UD DOSE PK Qty: 6 0RF Rx Instructions: Take two (2) tablets today, then one (1) tablet days #2 thru #5 methylprednisolone 4 MG tablets,dose pack 4 mg PO DIRECTED 6 Days Qty: 21 0RF fluticasone propionate 120 SPR/BOT bottle 1 spr NS DAILY 30 Days Qty: 120 0RF cetirizine 10 MG capsule 10 mg PO DAILY 30 Days Qty: 30 5RF triamcinolone acetonide 15 GM cream 1 applicatio TP TIDP PRN (Reason: Itching) 7 Days Qty: 1 0RF Rx Instructions: 0.025% methylprednisolone 4 MG tablets,dose pack 4 mg PO DIRECTED 6 Days Qty: 21 0RF azithromycin [Zithromax Z-Casey] 250 mg tablet See Rx Instructions .ROUTE .COMPLEX 5 Days Qty: 6 0RF Rx Instructions: For 250 mg dose pack: take 500 mg today (day 1), then 250 mg for 4 days (days 2-5) benzonatate 100 mg capsule 100 mg PO TID PRN (Reason: cough) Qty: 30 0RF methylprednisolone [Medrol (Casey)] 4 mg tablets,dose pack See Rx Instructions .Route .COMPLEX 6 Days Qty: 21 0RF Rx Instructions: taper pack; Referrals Follow up/Referrals: Carla Barnes APRN [Primary Care Provider] - See instructions Discharge ED Provider: Joanna Mercado [facility] [place] HPI General Stated complaint: Drainage, congestion, headache Time Seen by Provider: 04/25/22 08:21 History of Present Illness Provider Complaint: Patient states that for the last several weeks she has been having sinus pain and pressure and drianage in the back of her throat states feels like it does when she has a sinus infection Related Data Previous Rx's Medication Instructions Recorded albuterol sulfate 90 mcg/actuation 2 puff inhalation Q6H PRN wheezing 02/10/21 aerosol inhaler and SOB 30 days #6.7 grams azithromycin 250 mg tablet 250 mg PO UD DOSE PK #6 tabs 09/06/21 cetirizine 10 mg capsule 10 mg PO DAILY 30 days #30 caps 09/06/21 fluticasone propionate 50 1 spr NS DAILY 30 days #120 ea 09/06/21 mcg/actuation nasal spray,suspension methylprednisolone 4 mg tablets in 4 mg PO DIRECTED 6 days #21 09/06/21 a dose pack packets methylprednisolone 4 mg tablets in 4 mg PO DIRECTED 6 days #21 10/22/21 a dose pack packets triamcinolone acetonide 0.025 % 1 applicatio topical TIDP PRN 10/22/21 topical cream Itching 7 days ##1 cephalexin 500 mg capsule 500 mg PO QID 7 days #28 caps 03/07/22 phenazopyridine 200 mg tablet 200 mg PO Q8H 2 days #6 tabs 03/07/22 (Pyridium) azithromycin 250 mg tablet See Rx Instructions PO .COMPLEX 5 04/05/22 (Zithromax Z-Casey) days #6 tabs benzonatate 100 mg capsule 100 mg PO TID PRN cough #30 caps 04/05/22 methylprednisolone 4 mg tablets in See Rx Instructions .Route 04/05/22 a dose pack (Medrol (Casey)) .COMPLEX 6 days #21 tabs amoxicillin 875 mg-potassium 1 tab PO Q12H #20 tabs 04/25/22 clavulanate 125 mg tablet methylprednisolone 4 mg tablets in See Rx Instructions .Route 04/25/22 a dose pack (Medrol (Casey)) .COMPLEX 6 days #21 tabs Allergies Allergy/AdvReac Type Severity Reaction Status Date / Time No Known Allergies Allergy Verified 12/30/21 18:00 [facility] Disclaimer: The information contained in this section may have been updated after the patient was seen, as this information can be updated by other users. Me
[2022-04-25 08:28] VITALS: BP 137/80; PULSE 76; RESP 18; TEMP 36.8; O2SAT 98
== END 2022-04-25 08:30 | disposition home or self-care (01) ==
PROVIDERS: Emergency Provider Nurse Practitioner; PCP Nurse Practitioner
DX: J32.9 Chronic sinusitis, unspecified (principal)
CPT/HCPCS: 99212; G0463

== ENCOUNTER 2022-06-22 15:12 | Emergency (ER) | payer MEDICAID, SELFPAY ==
--- NOTE | 2022-06-22 15:29 | EXP.UTC ---
Discharge Plan Disposition Patient Disposition: Home, Self-Care Condition: Good Prescriptions Prescriptions: New cephalexin 500 mg capsule 500 mg PO QID 7 Days Qty: 25 0RF No Action albuterol sulfate 90 mcg/actuation HFA aerosol inhaler 2 puff INHALATION Q6H PRN (Reason: wheezing and SOB) 30 Days Qty: 6.7 0RF Rx Instructions: administer with spacer phenazopyridine [Pyridium] 200 mg tablet 200 mg PO Q8H 2 Days Qty: 6 0RF cephalexin 500 mg capsule 500 mg PO QID 7 Days Qty: 28 0RF azithromycin 250 MG tablet 250 mg PO UD DOSE PK Qty: 6 0RF Rx Instructions: Take two (2) tablets today, then one (1) tablet days #2 thru #5 methylprednisolone 4 MG tablets,dose pack 4 mg PO DIRECTED 6 Days Qty: 21 0RF fluticasone propionate 120 SPR/BOT bottle 1 spr NS DAILY 30 Days Qty: 120 0RF cetirizine 10 MG capsule 10 mg PO DAILY 30 Days Qty: 30 5RF triamcinolone acetonide 15 GM cream 1 applicatio TP TIDP PRN (Reason: Itching) 7 Days Qty: 1 0RF Rx Instructions: 0.025% methylprednisolone 4 MG tablets,dose pack 4 mg PO DIRECTED 6 Days Qty: 21 0RF azithromycin [Zithromax Z-Casey] 250 mg tablet See Rx Instructions .ROUTE .COMPLEX 5 Days Qty: 6 0RF Rx Instructions: For 250 mg dose pack: take 500 mg today (day 1), then 250 mg for 4 days (days 2-5) benzonatate 100 mg capsule 100 mg PO TID PRN (Reason: cough) Qty: 30 0RF methylprednisolone [Medrol (Casey)] 4 mg tablets,dose pack See Rx Instructions .Route .COMPLEX 6 Days Qty: 21 0RF Rx Instructions: taper pack; methylprednisolone [Medrol (Casey)] 4 mg tablets,dose pack See Rx Instructions .Route .COMPLEX 6 Days Qty: 21 0RF Rx Instructions: taper pack; amoxicillin-pot clavulanate 875-125 mg Tablet 1 tab PO Q12H Qty: 20 0RF Referrals Follow up/Referrals: Carla Barnes APRN [Primary Care Provider] - See instructions Activity Restrictions/Add. Instructions Additional Instructions/Restrictions: Follow up with your regular doctor. GO TO THE ER FOR ANY WORSENING SYMPTOMS I sent in a prescription for an antibiotic for a uti. Going on your urine results it does not look like you have an actual infection, but if your symptoms get worse you could start this. We will culture the urine. That will is causing your infection and which antibiotics will treat it best. Sometimes the first antibiotic we prescribe turns out to not work against different bacteria. So, make sure you follow up within 3 days if you are not getting better. Clinical Impressions Clinical Impression: Polyuria Instructions Patient Instructions: Urine Culture, DI for Urinary Tract Infection (UTI) Discharge ED Provider: Ross Cavanaugh [facility] General Stated complaint: poss UTI Time Seen by Provider: 06/22/22 15:29 History of Present Illness Provider Complaint: She states that she has had urinary frequency today. She denies any dysuria, low back pain, and other urinary symptoms. Related Data Previous Rx's Medication Instructions Recorded albuterol sulfate 90 mcg/actuation 2 puff inhalation Q6H PRN wheezing 02/10/21 aerosol inhaler and SOB 30 days #6.7 grams azithromycin 250 mg tablet 250 mg PO UD DOSE PK #6 tabs 09/06/21 cetirizine 10 mg capsule 10 mg PO DAILY 30 days #30 caps 09/06/21 fluticasone propionate 50 1 spr NS DAILY 30 days #120 ea 09/06/21 mcg/actuation nasal spray,suspension methylprednisolone 4 mg tablets in 4 mg PO DIRECTED 6 days #21 09/06/21 a dose pack packets methylprednisolone 4 mg tablets in 4 mg PO DIRECTED 6 days #21 10/22/21 a dose pack packets triamcinolone acetonide 0.025 % 1 applicatio topical TIDP PRN 10/22/21 topical cream Itching 7 days ##1 cephalexin 500 mg capsule 500 mg PO QID 7 days #28 caps 03/07/22 phenazopyridine 200 mg tablet 200 mg PO Q8H 2 days #6 tabs 03/07/22 (Pyridium) azithromycin 250 mg tablet See Rx Instructions PO .COMPL
[2022-06-22 15:33] VITALS: BP 130/64; PULSE 74; RESP 18; TEMP 36.6; O2SAT 99; BMI 22.8
[2022-06-22 15:38] LABS: Apearance,Urine Clear (Clear); Bilirubin,Urine Negative (Negative); Blood, Urine Negative (Negative); Color,Urine Yellow (Yellow); Glucose,Urine (UA) Negative (Negative); Ketones,Urine Negative (Negative); PH,Urine 6.5 (5.0-8.5); Protein,Urine Negative (Negative)
[2022-06-22 15:39] LABS: UTC Leukocyte Esterase,Urine Negative (Negative); UTC Nitrate,Urine Negative (Negative); Urobilinogen,Urine 0.2 EU/dl (0.2)
[2022-06-22 16:22] VITALS: BP 130/64; PULSE 74; RESP 18; TEMP 36.6; O2SAT 99
== END 2022-06-22 16:23 | disposition home or self-care (01) ==
PROVIDERS: Emergency Provider Nurse Practitioner Family; PCP Nurse Practitioner
DX: R35.89 Other polyuria (principal)
CPT/HCPCS: 81003; 99212; G0463

== ENCOUNTER 2022-06-25 18:11 | Emergency (ER) | payer MEDICAID, SELFPAY ==
[2022-06-25 18:40] VITALS: BP 115/76; PULSE 103; RESP 21; TEMP 36.9; O2SAT 100; BMI 24.0
--- NOTE | 2022-06-25 18:53 | EXP.UTC ---
Discharge Plan Disposition Patient Disposition: Home, Self-Care Condition: Good Prescriptions Prescriptions: New methylprednisolone [Medrol (Casey)] 4 mg tablets,dose pack See Rx Instructions .Route .COMPLEX 6 Days Qty: 21 0RF Rx Instructions: taper pack; amoxicillin-pot clavulanate 875-125 mg Tablet 1 tab PO Q12H Qty: 20 0RF fluticasone propionate [Flonase Allergy Relief] 50 mcg/actuation spray,suspension 1 spray intranasal DAILY Qty: 16 0RF Rx Instructions: administer into each nostril daily No Action cetirizine 10 mg tablet 10 mg PO DAILY Label Comments: TAKE 1 TABLET BY MOUTH ONCE DAILY Referrals Follow up/Referrals: Carla Barnes APRN [Primary Care Provider] - See instructions Activity Restrictions/Add. Instructions Additional Instructions/Restrictions: *Monitor Temp, Over the counter Motrin or Tylenol as directed/as needed Tylenol every 4 hours and Motrin every 6 hours (as long as your family doctor has told you that you can take it) for fever or pain. and straight to ER if unable to lower temp less than 101.0 after medication given *Warm salt water gargles may help to soothe the throat *Throat Lozenges? *Warm fluids like tea with honey may help to soothe the throat? *Sleep elevated *Humidifier/Vaporizer Your throat swab was sent for culture. Those results are typically sent to your primary care. Be sure to follow up in 2-3 days with your family doctor/primary care physician if no improvement so they can review those result and treat if necessary. If you don?t have a primary care doctor, I recommend you get one but in the mean time, you will have to return to a walk in clinic Follow up IMMEDIATELY for new or worsening symptoms or no Noticeable improvement over the next 48-72 hours. 911 for difficulty breathing or swallowing Clinical Impressions Clinical Impression: Sinusitis, Otitis media Stand Alone Forms Stand Alone Forms: Work/School Release Instructions Patient Instructions: Middle Ear Infection, DI for Sinusitis Discharge ED Provider: Joanna Mercado [facility] General Stated complaint: GUERRERO, earache Time Seen by Provider: 06/25/22 18:53 History of Present Illness Provider Complaint: Patient states that she has been having nasal congestion, bilateral ear pain, sore throat and low grade fever States that she has been sick for about 3-4 days but was out of [place] and they would not see her due to from out of state so she waited until she got back States that today her ears are hurting worse so she came in to get checked Related Data Home Medications Medication Instructions Recorded Confirmed cetirizine 10 mg tablet 10 mg PO DAILY Allergy symptoms 06/25/22 06/25/22 Previous Rx's Medication Instructions Recorded amoxicillin 875 mg-potassium 1 tab PO Q12H #20 tabs 06/25/22 clavulanate 125 mg tablet fluticasone propionate 50 1 spray intranasal DAILY #16 grams 06/25/22 mcg/actuation nasal spray,suspension (Flonase Allergy Relief) methylprednisolone 4 mg tablets in See Rx Instructions .Route 06/25/22 a dose pack (Medrol (Casey)) .COMPLEX 6 days #21 tabs Allergies Allergy/AdvReac Type Severity Reaction Status Date / Time No Known Allergies Allergy Verified 12/30/21 18:00 [facility] Disclaimer: The information contained in this section may have been updated after the patient was seen, as this information can be updated by other users. Medical History Anxiety Depression Migraine Surgical History History of section History of tonsillectomy Social History (Updated 06/25/22 @ 18:54 by Katie Beaver RN) Smoking Status: Never smoker alcohol intake: never substance use type: denies use current occupational status: employed Travel in the last 8 weeks: None household members: [facility]
[2022-06-25 19:14] VITALS: BP 115/76; PULSE 103; RESP 21; TEMP 36.9; O2SAT 100
[2022-06-25 19:14] LABS: UTC Strep Screen (Rapid) Negative (Negative)
== END 2022-06-25 19:45 | disposition home or self-care (01) ==
PROVIDERS: Emergency Provider Nurse Practitioner; PCP Nurse Practitioner
DX: J32.9 Chronic sinusitis, unspecified (principal); H66.90 Otitis media, unspecified, unspecified ear
CPT/HCPCS: 87880; 99212; 99213; G0463

== ENCOUNTER 2022-08-10 15:10 | Emergency (ER) | payer MEDICAID, SELFPAY ==
[2022-08-10 15:15] VITALS: BP 118/67; PULSE 69; RESP 16; TEMP 36.6; O2SAT 100; BMI 23.5
[2022-08-10 15:28] VITALS: BP 118/67; PULSE 69; RESP 16; TEMP 36.6; O2SAT 100
--- NOTE | 2022-08-10 15:28 | EXP.UTC ---
Discharge Plan Disposition Patient Disposition: Home, Self-Care Condition: Good Prescriptions Prescriptions: New ketotifen fumarate [Alaway] 0.025 % (0.035 %) drops 1 drp ophthalmic (eye) Q12H PRN (Reason: allergy symptoms) Qty: 5 0RF Referrals Follow up/Referrals: Carla Barnes APRN [Primary Care Provider] - See instructions Activity Restrictions/Add. Instructions Additional Instructions/Restrictions: Use drops as directed Follow up with Eye Doctor if no improvement in symptoms Return if needed Follow up with your Family Doctor if no improvment or any worsening of symptoms Clinical Impressions Clinical Impression: Itchy eyes Instructions Patient Instructions: Ketotifen Ophthalmic Discharge ED Provider: Joanna Mercado [facility] General Stated complaint: eyes Red Mode of Arrival: Ambulatory Source of Information: Patient Limitations: No Limitations Time Seen by Provider: 08/10/22 15:28 Description of Symptoms (Recalled from Triage Doc. by RN): PATIENT C/O ITCHY, DRY, CRUSTY, AND IRRITATED EYES HEENT Symptoms (Recalled from RN notes): Yes Resp Symptoms (Recalled from RN notes): No Skin Symptoms (Recalled from RN notes): No MS Symptoms (Recalled from RN notes): No Functional Status (Recalled from RN notes): WNL History of Present Illness Provider Complaint: Patient states that she was outside yesterday and she started having itchy eyes, that felt dry and irritated States that she isnt having any redness but this morning her eyes looked a little puffy Related Data Previous Rx's Medication Instructions Recorded ketotifen fumarate 0.025 % (0.035 1 drp ophthalmic (eye) Q12H PRN 08/10/22 %) eye drops (Alaway) allergy symptoms #5 mL Allergies Allergy/AdvReac Type Severity Reaction Status Date / Time No Known Allergies Allergy Verified 12/30/21 18:00 Worker's Comp Is this a Worker's Comp case?: No [facility] Disclaimer: The information contained in this section may have been updated after the patient was seen, as this information can be updated by other users. Medical History Anxiety Depression Migraine Surgical History History of section History of tonsillectomy Social History (Updated 06/25/22 @ 18:54 by Katie Beaver RN) Smoking Status: Never smoker alcohol intake: never substance use type: denies use current occupational status: employed Travel in the last 8 weeks: None household members: family housing: house ROS Obtained: Yes All systems reviewed & no additional complaints except as documented and Yes Systems reviewed as appropriate & no additional complaints except as documented Constitutional Constitutional: Reports system reviewed and no additional complaints, except as documented and Reports as per HPI Eyes Eyes: Reports system reviewed and no additional complaints, except as documented, Reports as per HPI, Denies blurry vision, Denies change in vision, Denies eye discharge, Reports irritation and Reports itchy eyes ENT Ears, Nose, Mouth, and Throat: Reports system reviewed and no additional complaints, except as documented and Reports as per HPI Cardiovascular Cardiovascular: Reports system reviewed and no additional complaints, except as documented and Reports as per HPI Respiratory Respiratory: Reports system reviewed and no additional complaints, except as documented and Reports as per HPI Gastrointestinal Gastrointestingal: Reports system reviewed and no additional complaints, except as documented and as per HPI Allergic/Immunologic Allergic/Immunologic: Reports itchy eyes Physical Exam General General appearance: alert and in no apparent distress Eye Eye exam: Present other (reports itching, irritation ); Absent conjunctival redness Respiratory Respiratory exam: Present normal lung sounds bilaterally; Absent respiratory distress or whee
== END 2022-08-10 15:43 | disposition home or self-care (01) ==
PROVIDERS: Emergency Provider Nurse Practitioner; PCP Nurse Practitioner
DX: H57.89 Other specified disorders of eye and adnexa (principal)
CPT/HCPCS: 99212; 99214; G0463

== ENCOUNTER 2022-09-24 14:17 | Emergency (ER) | payer MEDICAID, SELFPAY ==
[2022-09-24 14:40] VITALS: BP 126/74; PULSE 73; RESP 18; TEMP 36.9; O2SAT 100; BMI 23.2
--- NOTE | 2022-09-24 14:41 | EXP.UTC ---
Discharge Plan Disposition Patient Disposition: Home, Self-Care Condition: Good Prescriptions Prescriptions: New azithromycin [Zithromax] 250 mg tablet 250 mg PO UD DOSE PK Qty: 6 0RF Rx Instructions: Take two (2) tablets today, then one (1) tablet days #2 thru #5 methylprednisolone 4 mg Tablets,Dose Pack 4 mg PO DIRECTED Qty: 21 0RF [id number] [Bromfed DM] 2-30-10 mg/5 mL Syrup 5 ml PO Q6H PRN (Reason: Cough) Qty: 240 0RF No Action ketotifen fumarate [Alaway] 0.025 % (0.035 %) drops 1 drp ophthalmic (eye) Q12H PRN (Reason: allergy symptoms) Qty: 5 0RF Referrals Follow up/Referrals: Carla Barnes APRN [Primary Care Provider] - See instructions Activity Restrictions/Add. Instructions Additional Instructions/Restrictions: Drink plenty of fluids. Take tylenol or ibuprofen for pain or fever. Take the medications as directed. Follow up with your regular doctor. GO TO THE ER FOR ANY WORSENING SYMPTOMS Clinical Impressions Clinical Impression: Sinusitis Instructions Patient Instructions: Sinusitis, DI for Sinusitis Discharge ED Provider: Ross Cavanaugh [facility] HPI General Stated complaint: Congestion Time Seen by Provider: 09/24/22 14:41 History of Present Illness Provider Complaint: She states that she has had sinus congestion and a cough for the past 5 days. Related Data Previous Rx's Medication Instructions Recorded ketotifen fumarate 0.025 % (0.035 1 drp ophthalmic (eye) Q12H PRN 08/10/22 %) eye drops (Alaway) allergy symptoms #5 mL azithromycin 250 mg tablet 250 mg PO UD DOSE PK #6 tabs 09/24/22 (Zithromax) [id number] 5 ml PO Q6H PRN Cough #240 mL 09/24/22 2 mg-30 mg-10 mg/5 mL oral syrup (Bromfed DM) methylprednisolone 4 mg tablets in 4 mg PO DIRECTED #21 tabs 09/24/22 a dose pack Allergies Allergy/AdvReac Type Severity Reaction Status Date / Time No Known Allergies Allergy Verified 12/30/21 18:00 [facility] Disclaimer: The information contained in this section may have been updated after the patient was seen, as this information can be updated by other users. Medical History Anxiety Depression Migraine Surgical History History of section History of tonsillectomy Social History Smoking Status: Never smoker alcohol intake: never substance use type: denies use current occupational status: employed Travel in the last 8 weeks: None household members: family housing: house ROS Obtained: Yes All systems reviewed & no additional complaints except as documented Constitutional Constitutional: Reports poor appetite Eyes Eyes: Reports system reviewed and no additional complaints, except as documented ENT Ears, Nose, Mouth, and Throat: Reports as per HPI Cardiovascular Cardiovascular: Reports system reviewed and no additional complaints, except as documented and Denies chest pain Respiratory Respiratory: Denies shortness of breath, Denies chest congestion, Reports cough, Denies stridor and Denies wheezing Gastrointestinal Gastrointestingal: Reports system reviewed and no additional complaints, except as documented; Denies abdominal pain, diarrhea or vomiting Musculoskeletal Musculoskeletal: Reports system reviewed and no additional complaints, except as documented and Denies arthralgias Integumentary/Breasts Skin/Breast: Reports system reviewed and no additional complaints, except as documented and Denies rash Neurologic Neurologic: Denies paresthesias Allergic/Immunologic Allergic/Immunologic: Denies wheezing Physical Exam General General appearance: alert and in no apparent distress Eye Eye exam: Present normal appearance, PERRL and EOMI ENT ENT exam: Present mucous membranes moist and normal external ear exa
[2022-09-24 15:33] VITALS: BP 126/74; PULSE 73; RESP 18; TEMP 36.9; O2SAT 100
== END 2022-09-24 15:33 | disposition home or self-care (01) ==
PROVIDERS: Emergency Provider Nurse Practitioner Family; PCP Nurse Practitioner
DX: J01.90 Acute sinusitis, unspecified (principal); F41.9 Anxiety disorder, unspecified; F32.9 Major depressive disorder, single episode, unspecified
CPT/HCPCS: 99212; 99214; G0463

== ENCOUNTER 2023-01-28 15:17 | Emergency (ER) | payer MEDICAID, SELFPAY ==
[2023-01-28 15:40] VITALS: BP 116/70; PULSE 80; RESP 18; TEMP 36.8; O2SAT 98; BMI 23.1
[2023-01-28 15:54] LABS: UTC Strep Screen (Rapid) Negative (Negative)
--- NOTE | 2023-01-28 15:55 | EXP.UTC ---
Discharge Plan Disposition Patient Disposition: Home, Self-Care Condition: Good Prescriptions Prescriptions: New cetirizine 10 mg tablet 10 mg PO DAILY Qty: 30 5RF Referrals Follow up/Referrals: Carla Barnes APRN [Primary Care Provider] - See instructions Clinical Impressions Clinical Impression: Acute upper respiratory infection Instructions Patient Instructions: DI for Viral Upper Respiratory Infection -- Adult Discharge ED Provider: Rowena Rivera [facility] General Stated complaint: congestion, Time Seen by Provider: 01/28/23 15:37 History of Present Illness Provider Complaint: Pt relates that she has a sore throat, runny nose, and a slight cough. She is concerned that she may have strep. Son has been on antibiotics for an URI. Related Data Previous Rx's Medication Instructions Recorded cetirizine 10 mg tablet 10 mg PO DAILY #30 tabs 01/28/23 Allergies Allergy/AdvReac Type Severity Reaction Status Date / Time No Known Allergies Allergy Verified 01/28/23 15:56 [facility] Disclaimer: The information contained in this section may have been updated after the patient was seen, as this information can be updated by other users. Medical History Anxiety Depression Migraine Surgical History History of section History of tonsillectomy Social History Smoking Status: Never smoker alcohol intake: never substance use type: denies use current occupational status: employed Travel in the last 8 weeks: None household members: family housing: house ROS Obtained: Yes All systems reviewed & no additional complaints except as documented Constitutional Constitutional: Reports system reviewed and no additional complaints, except as documented Eyes Eyes: Reports system reviewed and no additional complaints, except as documented ENT Ears, Nose, Mouth, and Throat: Reports system reviewed and no additional complaints, except as documented, Reports nasal discharge, Reports odynophagia, Reports post nasal drip and Reports sore throat Cardiovascular Cardiovascular: Reports system reviewed and no additional complaints, except as documented Respiratory Respiratory: Reports system reviewed and no additional complaints, except as documented and Reports cough Comments: only in the morning upon arising. Gastrointestinal Gastrointestingal: Reports odynophagia Genitourinary Female Genitourinary: Reports system reviewed and no additional complaints, except as documented Musculoskeletal Musculoskeletal: Reports system reviewed and no additional complaints, except as documented Integumentary/Breasts Skin/Breast: Reports system reviewed and no additional complaints, except as documented Neurologic Neurologic: Reports system reviewed and no additional complaints, except as documented Endocrine Endocrine: Reports system reviewed and no additional complaints, except as documented Hematologic/Lymphatic Henatologic/Lymphatic: Reports system reviewed and no additional complaints, except as documented Allergic/Immunologic Allergic/Immunologic: Reports system reviewed and no additional complaints, except as documented Physical Exam General General appearance: alert and in no apparent distress Head Head exam: atraumatic and normocephalic Eye Eye exam: Present normal appearance Expanded ENT Exam External ear exam: Present normal external inspection Nasal speculum exam: Bilateral: other (clear drainage) Mouth exam: Present normal external inspection Teeth exam: Present normal inspection Comment: post nasal drainage present. Tonsils absent. Neck Neck exam: Present normal inspection Chest Chest inspection: Present normal inspection and symmetric chest wall rise Respiratory Respiratory exam: Present normal lung sounds bilaterally Cardiovasc
[2023-01-28 16:06] VITALS: BP 116/70; PULSE 80; RESP 18; TEMP 36.8; O2SAT 98
== END 2023-01-28 16:06 | disposition home or self-care (01) ==
PROVIDERS: Emergency Provider Nurse Practitioner Family; PCP Nurse Practitioner
DX: J06.9 Acute upper respiratory infection, unspecified (principal); B34.9 Viral infection, unspecified; F41.9 Anxiety disorder, unspecified; F32.A Depression, unspecified
CPT/HCPCS: 87880; 99212; 99214; G0463

== ENCOUNTER 2023-02-01 10:28 | Emergency (ER) | payer MEDICAID, SELFPAY ==
[2023-02-01 10:28] VITALS: BP 138/77; PULSE 76; RESP 18; TEMP 36.6; O2SAT 98; BMI 23.6
--- NOTE | 2023-02-01 10:40 | EXP.UTC ---
Discharge Plan Disposition Patient Disposition: Home, Self-Care Condition: Good Prescriptions Prescriptions: New methylprednisolone 4 mg Tablets,Dose Pack 4 mg PO DIRECTED Qty: 21 0RF azithromycin [Zithromax] 250 mg tablet 250 mg PO UD DOSE PK Qty: 6 0RF Rx Instructions: Take two (2) tablets today, then one (1) tablet days #2 thru #5 pseudoephedrine HCl 30 mg tablet 30 mg PO Q6HP PRN (Reason: Congestion) Qty: 30 0RF No Action cetirizine 10 mg tablet 10 mg PO DAILY Referrals Follow up/Referrals: Provider,Referral, MD [Primary Care Provider] - See instructions Activity Restrictions/Add. Instructions Additional Instructions/Restrictions: Drink plenty of fluids. Take tylenol or ibuprofen for pain or fever. Take the medications as directed. Follow up with your regular doctor. GO TO THE ER FOR ANY WORSENING SYMPTOMS Don't start the oral steroids until tomorrow, since you had the shot here today. Clinical Impressions Clinical Impression: Sinusitis Stand Alone Forms Stand Alone Forms: Work/School Release Instructions Patient Instructions: Sinusitis, DI for Sinusitis Discharge ED Provider: Ross Cavanaugh [facility] [place] HPI General Stated complaint: sore throat stuffy nose cough congestion Time Seen by Provider: 02/01/23 11:03 History of Present Illness Provider Complaint: She states that for the past couple of weeks she has had worsening stuffy nose, runny nose, sinus congestion, post-nasal drainage, and cough with chest congestion. She denies any fever/chills/body aches. She has not felt the best, but she has not been feeling sick. She was prescribed allergy medication by her pcp, but she states that has not been helping her much. She had a negative covid-19 test and a negative strep throat test done at her pcp's office a few days ago. Related Data Home Medications Medication Instructions Recorded Confirmed cetirizine 10 mg tablet 10 mg PO DAILY allergies 02/01/23 02/01/23 Previous Rx's Medication Instructions Recorded azithromycin 250 mg tablet 250 mg PO UD DOSE PK #6 tabs 02/01/23 (Zithromax) methylprednisolone 4 mg tablets in 4 mg PO DIRECTED #21 tabs 02/01/23 a dose pack pseudoephedrine HCl 30 mg tablet 30 mg PO Q6HP PRN Congestion #30 02/01/23 tabs Allergies Allergy/AdvReac Type Severity Reaction Status Date / Time No Known Allergies Allergy Verified 01/28/23 15:56 [facility] Disclaimer: The information contained in this section may have been updated after the patient was seen, as this information can be updated by other users. Medical History Anxiety Depression Migraine Surgical History History of section History of tonsillectomy Social History Smoking Status: Never smoker alcohol intake: never substance use type: denies use current occupational status: employed Travel in the last 8 weeks: None household members: family housing: house ROS Obtained: Yes All systems reviewed & no additional complaints except as documented Constitutional Constitutional: Reports poor appetite Eyes Eyes: Reports system reviewed and no additional complaints, except as documented ENT Ears, Nose, Mouth, and Throat: Reports as per HPI Cardiovascular Cardiovascular: Reports system reviewed and no additional complaints, except as documented and Denies chest pain Respiratory Respiratory: Denies shortness of breath, Reports chest congestion, Reports cough, Denies stridor and Denies wheezing Gastrointestinal Gastrointestingal: Reports system reviewed and no additional complaints, except as documented; Denies abdominal pain, diarrhea or vomiting Musculoskeletal Musculoskeletal: Reports system reviewed and no additional complaints, except as documented and Denies arthralgias
[2023-02-01 11:04] VITALS: BP 138/77; PULSE 76; RESP 18; TEMP 36.6; O2SAT 98
== END 2023-02-01 11:04 | disposition home or self-care (01) ==
PROVIDERS: Emergency Provider Nurse Practitioner Family
DX: J01.90 Acute sinusitis, unspecified (principal); F41.9 Anxiety disorder, unspecified; F32.A Depression, unspecified
CPT/HCPCS: 96372; 99212; 99214; G0463

== ENCOUNTER 2024-03-03 13:12 | Outpatient (CLI) | payer OTHER, SELFPAY | END 2024-03-03 23:59 | disposition home or self-care (01) | LOC: LAB.DROPOF 03-04 15:19 | PROVIDERS: Visit Provider Student in an Organized Health Care Education/Training Program | DX: R05.9 Cough, unspecified (principal) | CPT/HCPCS: 87070 ==

== ENCOUNTER 2024-03-24 10:21 | Outpatient (CLI) | payer OTHER, SELFPAY | END 2024-03-24 23:59 | disposition home or self-care (01) | LOC: LAB.DROPOF 03-25 08:48 | PROVIDERS: PCP Student in an Organized Health Care Education/Training Program; Visit Provider Student in an Organized Health Care Education/Training Program | DX: R09.81 Nasal congestion (principal) | CPT/HCPCS: 87635 ==